=== PATIENT | female | born 1950 | race Caucasian/White ===

== ENCOUNTER 2023-03-19 11:02 | Outpatient (AMB) | payer MEDICARE, OTHER, SELFPAY ==
--- NOTE | 2023-03-19 11:12 | HO.NEPHOV_ITS ---
HPI HPI Comments History of Present Illness Details I had the pleasure of seeing Rama in follow-up of her mild chronic kidney disease and hypertension. Her blood pressures have been better since adjustment of her medications even though it is still not at goal. She does not take any excess sodium in the diet or nonsteroidal anti-inflammatories. She maintains good hydration. She denies chest pain, shortness of breath, proximal nocturnal dyspnea, orthopnea, pedal edema, urinary symptoms, orthostasis or hematuria. Her serum creatinine had been stable around 1.3. Her mother had CKD, followed had CKD and 1 of her cousins had ESRD needing renal transplantation. She is compliant with her medications. She feels well. [facility] Medical History (Updated 03/19/23 @ 13:30 by Yazan Rodriguez MD) Chronic kidney disease, stage 3a Hypertension Surgical History (Updated 03/19/23 @ 11:22 by Araceli Meng MA) History of hysterectomy Family History Father Diabetes CKD (chronic kidney disease) Mother Diabetes CKD (chronic kidney disease) Mother Diabetes CKD (chronic kidney disease) Social History (Updated 03/19/23 @ 11:22 by Araceli Meng MA) Alcohol intake: never Patient Tobacco Use Status: Never used Tobacco Vital Signs 03/19/23 11:14 03/19/23 11:48 Height 5 ft 2 in Weight 135 lb 8 oz BMI 24.8 BP 154/100 H 140/90 H Blood Pressure Location Lt brachial Position Sitting Pulse 94 Pulse Source Pulse Oximeter Pulse Oximetry (%) 99 Oxygen Delivery Method Room Air Physical Exam Vital Signs: Last Vital Signs Pulse 94 03/19/23 11:14 BP 140/90 H 03/19/23 11:48 Pulse Ox 99 03/19/23 11:14 Oxygen Delivery Method Room Air 03/19/23 11:14 BMI result Body Mass Index 24.8 Const General: comfortable and no acute distress Orientation/consciousness: patient oriented x3 HEENT Head: Yes normocephalic Mouth: Normal oral and palatal mucosa present Eyes EOM: EOMs intact bilaterally Neck Neck: Yes supple Resp Auscultation: clear to auscultation bilaterally Cardio Jugular venous distension: no JVD Rate: regular rate GI Palpation (GI): Soft to palpation Auscultation: normal bowel sounds General: Yes no CVA tenderness Back/Spine/Pelvis Back: no CVA tenderness Skin General skin exam: no rashes or lesions noted Neuro General: patient oriented x3 and moves all extremities Extrem General: Yes no pedal edema Assessment & Plan Assessment & Plan (1) Chronic kidney disease, stage 3a: Code(s): N18.31 - Chronic kidney disease, stage 3a (2) Hypertension: Code(s): I10 - Essential (primary) hypertension Qualifiers: Hypertension type: primary hypertension Qualified Code(s): I10 - Essential (primary) hypertension Plan Rama has mild CKD likely from vascular disease. She has no proteinuria. Her serum creatinine is stable at 1.3. 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 She does not have any RBCs in the urine. She can continue her losartan at 100 mg daily. I increased her amlodipine to 5 mg from 2.5 mg daily. I will repeat her blood work including ANCA after next visit along with urine studies. All questions answered. Follow-up given. Orders: Orders Electrolytes Today I10 - Essential (primary) hypertension, N18.31 - Chronic kidney disease, stage 3a Creatinine Today I10 - Essential (primary) hypertension, N18.31 - Chronic kidney disease, stage 3a Blood Urea Nitrogen Today I10 - Essential (primary) hypertension, N18.31 - Chronic kidney disease, stage 3a Medications: New amlodipine 5 mg PO DAILY 90 tabs 4RF 90 days Coding Level of Care Code Est Pt Level 4 (06855) Diagnoses Chronic kidney disease, stage 3a N18.31 Primary hypertension I10 Hypertension type: primary hypertension Results Reviewed Nephrology Results: No Data to Display
[2023-03-19 11:14] VITALS: BP 154/100; PULSE 94; O2SAT 99; BMI 24.8
[2023-03-19 11:48] VITALS: BP 140/90
== END 2023-03-19 11:57 | disposition home or self-care (01) ==
PROVIDERS: PCP Internal Medicine; Visit Provider Internal Medicine Nephrology
DX: N18.31 Chronic kidney disease, stage 3a (principal); I10 Essential (primary) hypertension
CPT/HCPCS: 99214

== ENCOUNTER → 2023-03-19 11:02 | Outpatient (BNVA) | payer MEDICARE, OTHER, SELFPAY | PROVIDERS: PCP Internal Medicine; Visit Provider Internal Medicine Nephrology | DX: I12.9 Hypertensive chronic kidney disease with stage 1 through stage 4 chronic kidney disease, or unspecified chronic kidney disease (principal); N18.31 Chronic kidney disease, stage 3a; Z79.899 Other long term (current) drug therapy | CPT/HCPCS: 99212 ==

== ENCOUNTER 2023-06-25 12:44 | Outpatient (REF) | payer MEDICARE, OTHER, SELFPAY ==
[2023-06-25 17:27] LABS: Anion Gap 10 (12-20); Blood Urea Nitrogen 20 mg/dL (9-16); Carbon Dioxide 27 mmol/L (22-29); Chloride 107 mmol/L (96-108); Estimated Glomerular Filt Rate 44; Potassium 4.2 mmol/L (3.3-5.1); Sodium 140 mmol/L (135-145)
== END 2023-06-25 12:45 | disposition home or self-care (01) ==
LOC: HO.HKASLDS 12:44
PROVIDERS: Visit Provider Internal Medicine Nephrology
DX: I12.9 Hypertensive chronic kidney disease with stage 1 through stage 4 chronic kidney disease, or unspecified chronic kidney disease (principal); N18.31 Chronic kidney disease, stage 3a
CPT/HCPCS: 36415; 80051; 82565; 84520

== ENCOUNTER 2023-06-27 11:03 | Outpatient (AMB) | payer MEDICARE, OTHER, SELFPAY ==
[2023-06-27 11:10] VITALS: BP 140/90; PULSE 71; O2SAT 100; BMI 25.0
--- NOTE | 2023-06-27 11:10 | HO.NEPHOV ---
Vital Signs 06/27/23 11:10 Height 5 ft 2 in Weight 136 lb 8 oz BMI 25.0 BP 140/90 H Blood Pressure Location Lt brachial Position Sitting Pulse 71 Pulse Source Pulse Oximeter Pulse Oximetry (%) 100 Oxygen Delivery Method Room Air Intake Visit Reasons: Hypertension/ 3 MO FU/ Confirmed Clinical Nutritionist Required: No Accompanied by: Self / Same As Patient Allergies No Known Allergies Allergy (Verified 06/27/23 11:13) HPI Comments Details: I had the pleasure of seeing Rama in follow-up of her mild chronic kidney disease and hypertension. Her blood pressures have been better since adjustment of her medications e. She does not take any excess sodium in the diet or nonsteroidal anti-inflammatories. She maintains good hydration. She denies chest pain, shortness of breath, proximal nocturnal dyspnea, orthopnea, pedal edema, urinary symptoms, orthostasis or hematuria. Her serum creatinine had been stable around 1.3. Her mother had CKD, followed had CKD and 1 of her cousins had ESRD needing renal transplantation. She is compliant with her medications. [facility] Medical History (Updated 03/19/23 @ 13:30 by Yazan Rodriguze MD) Chronic kidney disease, stage 3a Hypertension Surgical History History of hysterectomy Family History Father Diabetes CKD (chronic kidney disease) Mother Diabetes CKD (chronic kidney disease) Mother Diabetes CKD (chronic kidney disease) Social History Alcohol intake: never Patient Tobacco Use Status: Never used Tobacco Physical Exam Vital Signs: Last Vital Signs Pulse 71 06/27/23 11:10 BP 150/84 H 06/27/23 11:10 Pulse Ox 100 06/27/23 11:10 Oxygen Delivery Method Room Air 06/27/23 11:10 BMI result Body Mass Index 25.0 Const General: comfortable and no acute distress Orientation/consciousness: patient oriented x3 HEENT Head: Yes normocephalic Mouth: Normal oral and palatal mucosa present Eyes EOM: EOMs intact bilaterally Neck Neck: Yes supple Resp Auscultation: clear to auscultation bilaterally Cardio Jugular venous distension: no JVD Rate: regular rate GI Palpation (GI): Soft to palpation Auscultation: normal bowel sounds General: Yes no CVA tenderness Back/Spine/Pelvis Back: no CVA tenderness Skin General skin exam: no rashes or lesions noted Neuro General: patient oriented x3 and moves all extremities Extrem General: Yes no pedal edema Results Reviewed Nephrology Results: Sodium 140 mmol/L (135-145) 06/25/23 Potassium 4.2 mmol/L (3.3-5.1) 06/25/23 Chloride 107 mmol/L (96-108) 06/25/23 Carbon Dioxide 27 mmol/L (22-29) 06/25/23 BUN 20 mg/dL (9-16) H 06/25/23 Creatinine 1.19 mg/dL (0.5-1.4) 06/25/23 Assessment & Plan Assessment & Plan (1) Chronic kidney disease, stage 3a: Code(s): N18.31 - Chronic kidney disease, stage 3a Category: Medical (2) Hypertension: Code(s): I10 - Essential (primary) hypertension Category: Medical Qualifiers: Hypertension type: primary hypertension Qualified Code(s): I10 - Essential (primary) hypertension Plan Rama has mild CKD likely from vascular disease. She has no proteinuria. Her serum creatinine is stable . 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 She does not have any RBCs in the urine. She can continue her losartan at 100 mg daily and amlodipine to 5 mg daily. I will repeat her blood work including ANCA after next visit along with urine studies. All questions answered. Follow-up given. Orders: Orders Creatinine Today Blood Urea Nitrogen Today Electrolytes Today ANCA Vasculitides Today Coding Level of Care Code Est Pt Level 4 (06447) Diagnoses Chronic kidney disease, stage 3a N18.31 Primary hypertension I10 Hypertension type: primary hypertension
== END 2023-06-27 11:34 | disposition home or self-care (01) ==
PROVIDERS: PCP Internal Medicine; Visit Provider Internal Medicine Nephrology
DX: N18.31 Chronic kidney disease, stage 3a (principal); I10 Essential (primary) hypertension
CPT/HCPCS: 99214

== ENCOUNTER → 2023-06-27 11:03 | Outpatient (BNVA) | payer MEDICARE, OTHER, SELFPAY | PROVIDERS: PCP Internal Medicine; Visit Provider Internal Medicine Nephrology | DX: I12.9 Hypertensive chronic kidney disease with stage 1 through stage 4 chronic kidney disease, or unspecified chronic kidney disease (principal); N18.31 Chronic kidney disease, stage 3a | CPT/HCPCS: 99212 ==

== ENCOUNTER 2023-10-01 11:10 | Outpatient (AMB) | payer MEDICARE, OTHER, SELFPAY ==
--- NOTE | 2023-10-01 11:33 | HO.NEPHOV ---
Vital Signs 10/01/23 11:34 Height 5 ft 2 in Weight 135 lb 4 oz BMI 24.7 BP 150/90 H Blood Pressure Location Lt brachial Position Sitting Pulse 88 Pulse Source Pulse Oximeter Pulse Oximetry (%) 98 Oxygen Delivery Method Room Air Intake Visit Reasons: Aug follow up/ Conf Livestock Brands Inspector Required: No Accompanied by: Self / Same As Patient Allergies No Known Allergies Allergy (Verified 10/01/23 11:35) HPI Comments Details: I had the pleasure of seeing Rama in follow-up of her mild chronic kidney disease and hypertension. Her blood pressures have been better since adjustment of her medications . She does not take any excess sodium in the diet or nonsteroidal anti-inflammatories. She maintains good hydration. She denies chest pain, shortness of breath, proximal nocturnal dyspnea, orthopnea, pedal edema, urinary symptoms, orthostasis or hematuria. Her serum creatinine had been stable around 1.3. Her mother had CKD, followed had CKD and 1 of her cousins had ESRD needing renal transplantation. She is compliant with her medications. She has had couple of episodes of orthostatic symptoms. [facility] Medical History Chronic kidney disease, stage 3a Hypertension Surgical History History of hysterectomy Family History Father Diabetes CKD (chronic kidney disease) Mother Diabetes CKD (chronic kidney disease) Mother Diabetes CKD (chronic kidney disease) Social History Alcohol intake: never Patient Tobacco Use Status: Never used Tobacco Review of Systems Const All systems reviewed & are unremarkable except as noted in HPI and below Physical Exam Vital Signs: Last Vital Signs Pulse 88 10/01/23 11:34 BP 150/90 H 10/01/23 11:34 Pulse Ox 98 10/01/23 11:34 Oxygen Delivery Method Room Air 10/01/23 11:34 BMI result Body Mass Index 24.7 Const General: comfortable and no acute distress Orientation/consciousness: patient oriented x3 HEENT Head: Yes normocephalic Mouth: Normal oral and palatal mucosa present Eyes EOM: EOMs intact bilaterally Neck Neck: Yes supple Resp Auscultation: clear to auscultation bilaterally Cardio Jugular venous distension: no JVD Rate: regular rate Heart sounds: Murmur heart sound present GI Palpation (GI): Soft to palpation Auscultation: normal bowel sounds General: Yes no CVA tenderness Back/Spine/Pelvis Back: no CVA tenderness Skin General skin exam: no rashes or lesions noted Neuro General: patient oriented x3 and moves all extremities Extrem General: Yes no pedal edema Results Reviewed Nephrology Results: Sodium 140 mmol/L (135-145) 06/25/23 Potassium 4.2 mmol/L (3.3-5.1) 06/25/23 Chloride 107 mmol/L (96-108) 06/25/23 Carbon Dioxide 27 mmol/L (22-29) 06/25/23 BUN 20 mg/dL (9-16) H 06/25/23 Creatinine 1.19 mg/dL (0.5-1.4) 06/25/23 Assessment & Plan Assessment & Plan (1) Chronic kidney disease, stage 3a: Code(s): N18.31 - Chronic kidney disease, stage 3a Category: Medical (2) Hypertension: Code(s): I10 - Essential (primary) hypertension Category: Medical Qualifiers: Hypertension type: primary hypertension Qualified Code(s): I10 - Essential (primary) hypertension Plan Rama has mild CKD likely from vascular disease. She has no proteinuria. Her serum creatinine is stable . 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 She does not have any RBCs in the urine. She can continue her losartan at 100 mg daily AM and amlodipine to 5 mg daily at night. I will back him off Amlodipine to 2.5 mg if her orthostatic symptoms do not resolve with change in timing of medications. All questions answered. Follow-up given. Coding Level of Care Code Est Pt Level 4 (23252) Diagnoses Chronic kidney disease, stage 3a N18.31 Primary hypertension I10 Hypertension type: primary hypertension
[2023-10-01 11:34] VITALS: BP 150/90; PULSE 88; O2SAT 98; BMI 24.7
== END 2023-10-01 12:58 | disposition home or self-care (01) ==
PROVIDERS: PCP Internal Medicine; Visit Provider Internal Medicine Nephrology
DX: N18.31 Chronic kidney disease, stage 3a (principal); I10 Essential (primary) hypertension
CPT/HCPCS: 99214

== ENCOUNTER → 2023-10-01 11:10 | Outpatient (BNVA) | payer MEDICARE, OTHER, SELFPAY | PROVIDERS: PCP Internal Medicine; Visit Provider Internal Medicine Nephrology ==

== ENCOUNTER 2023-10-01 11:16 | Outpatient (REF) | payer MEDICARE, OTHER, SELFPAY ==
[2023-10-01 18:39] LABS: Anion Gap 14 (12-20); Blood Urea Nitrogen 15 mg/dL (9-16); Carbon Dioxide 26 mmol/L (22-29); Chloride 107 mmol/L (96-108); Estimated Glomerular Filt Rate 46; Potassium 3.9 mmol/L (3.3-5.1); Sodium 143 mmol/L (135-145)
[2023-10-03 20:48] LABS: Myeloperoxidase Antibody <1.0 AI; Proteinase 3 PR3 Antibodies <1.0 AI
== END 2023-10-01 11:17 | disposition home or self-care (01) ==
LOC: HO.HKASLDS 11:16
PROVIDERS: Visit Provider Internal Medicine Nephrology
DX: I12.9 Hypertensive chronic kidney disease with stage 1 through stage 4 chronic kidney disease, or unspecified chronic kidney disease (principal); N18.31 Chronic kidney disease, stage 3a; Z79.899 Other long term (current) drug therapy
CPT/HCPCS: 36415; 80051; 82565; 84520; 86021; 99212

== ENCOUNTER 2024-04-07 09:48 | Outpatient (AMB) | payer MEDICARE, OTHER, SELFPAY ==
--- NOTE | 2024-04-07 10:10 | HO.NEPHOV ---
Vital Signs 04/07/24 10:11 Height 5 ft 2 in Weight 135 lb 2 oz BMI 24.7 BP 160/90 H Blood Pressure Location Lt brachial Position Sitting Intake Visit Reasons: R/s from 04/02/24/ Conf Extruder Tender Required: No Accompanied by: Self / Same As Patient Allergies No Known Allergies Allergy (Verified 04/07/24 10:11) HPI Comments Details: I had the pleasure of seeing Rama in follow-up of her mild chronic kidney disease and hypertension. Her blood pressures have been better since adjustment of her medications . She has been having recurrent vestibulitis. She does not take any excess sodium in the diet or nonsteroidal anti-inflammatories. She maintains good hydration. She denies chest pain, shortness of breath, proximal nocturnal dyspnea, orthopnea, pedal edema, urinary symptoms, orthostasis or hematuria. Her serum creatinine had been stable around 1.3. Her mother had CKD, followed had CKD and 1 of her cousins had ESRD needing renal transplantation. She is compliant with her medications. [facility] Medical History Chronic kidney disease, stage 3a Hypertension Surgical History History of hysterectomy Family History Father Diabetes CKD (chronic kidney disease) Mother Diabetes CKD (chronic kidney disease) Mother Diabetes CKD (chronic kidney disease) Social History Alcohol intake: never Patient Tobacco Use Status: Never used Tobacco Review of Systems Const All systems reviewed & are unremarkable except as noted in HPI and below Physical Exam Vital Signs: Last Vital Signs BP 160/90 H 04/07/24 10:11 BMI result Body Mass Index 24.7 Const General: comfortable and no acute distress Orientation/consciousness: patient oriented x3 HEENT Head: Yes normocephalic Mouth: Normal oral and palatal mucosa present Eyes EOM: EOMs intact bilaterally Neck Neck: Yes supple Resp Auscultation: clear to auscultation bilaterally Cardio Jugular venous distension: no JVD Rate: regular rate GI Palpation (GI): Soft to palpation Auscultation: normal bowel sounds General: Yes no CVA tenderness Back/Spine/Pelvis Back: no CVA tenderness Skin General skin exam: no rashes or lesions noted Neuro General: patient oriented x3 and moves all extremities Extrem General: Yes no pedal edema Results Reviewed Nephrology Results: Sodium 143 mmol/L (135-145) 10/01/23 Potassium 3.9 mmol/L (3.3-5.1) 10/01/23 Chloride 107 mmol/L (96-108) 10/01/23 Carbon Dioxide 26 mmol/L (22-29) 10/01/23 BUN 15 mg/dL (9-16) 10/01/23 Creatinine 1.15 mg/dL (0.5-1.4) 10/01/23 Assessment & Plan Assessment & Plan (1) Chronic kidney disease, stage 3a: Code(s): N18.31 - Chronic kidney disease, stage 3a Category: Medical (2) Hypertension: Code(s): I10 - Essential (primary) hypertension Category: Medical Qualifiers: Hypertension type: primary hypertension Qualified Code(s): I10 - Essential (primary) hypertension Plan Rama has mild CKD likely from vascular disease. She has no proteinuria. Her serum creatinine is stable . 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 She does not have any RBCs in the urine. She can continue her losartan at 100 mg daily AM and amlodipine to 5 mg daily at night. All questions answered. Follow-up given. Orders: Orders Blood Urea Nitrogen 4 Months I10 - Essential (primary) hypertension, N18.31 - Chronic kidney disease, stage 3a Creatinine 4 Months I10 - Essential (primary) hypertension, N18.31 - Chronic kidney disease, stage 3a Electrolytes 4 Months I10 - Essential (primary) hypertension, N18.31 - Chronic kidney disease, stage 3a Protein Creatinine Ratio, Ur 4 Months I10 - Essential (primary) hypertension, N18.31 - Chronic kidney disease, stage 3a Coding Level of Care Code Est Pt Level 4 (46184) Diagnoses Chronic kidney disease, stage 3a N18.31 Primary hypertension I10 Hypertension type: primary hypertension
[2024-04-07 10:11] VITALS: BP 160/90; BMI 24.7
--- OUTSIDE RECORDS SUMMARY | 2024-04-07 10:56 | XMS_ITS | Clinical Summary ---
Author Organization [facility] Address [address] [place] [address] Phone Care Team Providers Care Merchant Patroller Name Role Phone Bayron Rascon MD Primary Care Provider [phone] Allergies No known active allergies Medications losartan (COZAAR) 100 MG tablet Take 1 tablet (100 mg total) by mouth 1 (one) time each day 90 tablet 3 03/05/2022 Active rosuvastatin (CRESTOR) 10 MG tablet Take 10 mg by mouth 1 (one) time each day 08/13/2022 Active amLODIPine (NORVASC) 2.5 MG tablet Take 2.5 mg by mouth 1 (one) time each day Active Active Problems Problem Noted Date Diagnosed Date Hypertension 04/04/2021 Benign essential hypertension 08/31/2020 Stage 3a chronic kidney disease 08/31/2020 Vitamin D deficiency 08/31/2020 Family History Medical History Relation Comments Diabetes Father Hypertension Father Kidney disease Father Diabetes Mother Heart disease Mother Hypertension Mother Kidney disease Mother Relation Status Comments Father Alive Mother Social History Tobacco Use Types Packs/Day Years Used Date Smoking Tobacco: Never Smokeless Tobacco: Never Tobacco Cessation:Counseling Given: Not Answered Alcohol Use Standard Drinks/Week Comments No 0 (1 standard drink = 0.6 oz pur e alcohol) Comments Unknown Sex and Gender Information Value Date Recorded Sex Assigned at Not on file Legal Sex Female 5:13 PM EST Gender Identity Not on file Sexual Orientation Not on file Last Filed Vital Signs Vital Sign Reading Time Taken Comments Blood Pressure 140/90 10/08/2022 2:30 PM EDT Pulse 69 10/08/2022 2:30 PM EDT Temperature - - Respiratory Rate - - Oxygen Saturation 98% 03/23/2021 3:16 PM EST Inhaled Oxygen Concentration - - Weight 60.6 kg (133 lb 9.6 oz) 10/08/2022 2:30 P M EDT Height 160 cm (5' 3 ) 06/09/2019 12:00 PM EDT Body Mass Index 23.67 06/09/2019 12:00 PM EDT Plan of Treatment Health Maintenance Due Date Last Done Comments Breast Cancer Screening 1950 Pneumococcal Vaccine: 65+ Ye ars (1 of 2 - PCV) 11/17/1956 Colorectal Cancer Screening: Annual FOBT 1998 Colorectal Cancer Screening: Colonoscopy 1998 Colorectal Cancer Screening: Sigmoidoscopy 1998 Influenza Vaccine (#1) 2023 Hepatitis B Vaccine Aged Out No longe r eligible based on patient's age to complete this topic Insurance MEDICARE [facility] MEDICARE [facility] Care Teams Merchant Patroller Relationship Specialty Start Date End Date Bayron Rascon MD [address] [place] [address] PCP - General 03/07/20
--- OUTSIDE RECORDS SUMMARY | 2024-04-07 10:56 | XMS_ITS | Encounter Summary ---
Author Organization [facility] Address [address] [place] [address] Phone Care Team Providers Care Immigration Associate Name Role Phone Bayron Rascon MD Primary Care Provider Encounter Details Date Type Department Care Team (Late st Contact Info) Description 04/04/2021 Documentation Only [facility] [address] [place] [address] Yazan Rodriguez MD Social History Tobacco Use Types Packs/Day Years Used Date Smoking Tobacco: Never Smokeless Tobacco: Never Alcohol Use Standard Drinks/Week Comments No 0 (1 standard drink = 0.6 oz pur e alcohol) Comments Unknown Sex and Gender Information Value Date Recorded Sex Assigned at Not on file Legal Sex Female 5:13 PM EST Gender Identity Not on file Sexual Orientation Not on file COVID-19 Exposure Response Date Recorded In the last month, have you been in contact with someone who was confirmed or suspected to have Coronavirus / COVID-19? No / Unsure 04/03/2021 10:55 AM EST documented as of this encounter Plan of Treatment Not on file documented as of this encounter Visit Diagnoses Not on filedocumented in this encounter Care Teams Immigration Associate Relationship Specialty Start Date End Date Bayron Rascon MD [address] [place] [address] PCP - General 03/07/20 documented as of this encounter
--- OUTSIDE RECORDS SUMMARY | 2024-04-07 10:57 | XMS_ITS | Clinical Summary ---
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 30 tablet 03/30/19 25 Encounters Date Type Department Care Team Description 03/20/2024 4:05 PM EST - 03/20/2024 8:45 PM EST Emergency [facility] Emergency [address] [place] [address] Dizziness (Primary Dx) Discharge Disposition: Home or Self Care from Last 3 Months Social History Tobacco Use Types Packs/Day Years Used Date Smoking Tobacco: Never Assessed Comments Unknown Sex and Gender Information Value Date Recorded Sex Assigned at Female 03/20/2024 4:56 PM EST Legal Sex Female 3:24 AM EST Gender Identity Female 03/20/2024 4:56 PM EST Sexual Orientation Straight 03/20/2024 4: 56 PM EST Last Filed Vital Signs Vital Sign Reading Time Taken Comments Blood Pressure 167/85 03/20/2024 6:21 PM EST Pulse 63 03/20/2024 6:21 PM EST Temperature 37.1 ??C (98.7 ??F) 03/20/2024 6:21 PM ES T Respiratory Rate 17 03/20/2024 6:21 PM EST Oxygen Saturation 96% 03/20/2024 6:21 PM EST Inhaled Oxygen Concentration - - Weight 60.3 kg (133 lb) 03/20/2024 4:19 PM EST Height 160 cm (5' 3 ) 03/20/2024 4:19 PM EST Body Mass Index 23.56 03/20/2024 4:19 PM EST Plan of Treatment Health Maintenance Due Date Last Done Comments Breast Cancer Screening 1950 DTaP,Tdap,and Td Vaccines (1 - Tdap) 1957 Pneumococcal Vaccine: 50+ Years (1 of 1 - PCV) 11/17/1999 Zoster Vaccines (1 of 2) 11/17/1999 Cholesterol Screening (Lipid Panel) 01/28/2022 Colorectal Cancer Screening: Colonoscopy 01/28/2022 Depression Screening 01/28/2022 Falls Risk Assessment 01/28/2022 Hepatitis C Screening 01/28/2022 Medicare Annual Wellness Visit 01/28/2022 Osteoporosis Screening (Bone Density Screening) 01/28/2022 Social Influencers of Health Screening 01/28/2022 COVID-19 Vaccine (3 - 2023-2 5 season) 2023 07/29/2020, 06/30/2020 Influenza Vaccine (#1) 2023 04/01/2019 RSV Immunization Patients 60 + Years Old (1 - 1-dose 75+ series) 2024 Hypertension/CHF/CAD Annual BMP Blood Test 03/20/2025 03/20/2024 HIB Vaccines Aged Out No longer eligi ble based on patient's age to complete this topic HPV Vaccines Aged Out No longer eligi ble based on patient's age to complete this topic Hepatitis A Vaccines Aged Out No long er eligible based on patient's age to complete this topic Hepatitis B Vaccines Aged Out No long er eligible based on patient's age to complete this topic IPV Vaccines Aged Out No longer eligi ble based on patient's age to complete this topic MMR Vaccines Aged Out No longer eligi ble based on patient's age to complete this topic Meningococcal ACWY Vaccine Aged Out N o longer eligible based on patient's age to complete this topic Meningococcal B Vacine Aged Out No lo nger eligible based on patient's age to complete this topic RSV Immunization Patients Under 20 months Aged Out No longer eligible b ased on patient's age to complete this topic Varicella Vaccines Aged Out No longer eligible based on patient's age to complete this topic Procedures Procedure Name Priority Date/Time Associated Diagnosis Comments TROPONIN I HIGH SENSITIVITY STAT 03/20/2024 6:04 PM EST POCT GLUCOSE BLOOD Routine 03/20/2024 4: 52 PM EST ECG 12-LEAD STAT 03/20/2024 4:44 PM EST TROPONIN I HIGH SENSITIVITY STAT 03/20/2024 4:25 PM EST CBC WITH AUTO DIFFERENTIAL STAT 03/20/2024 4:25 PM EST MAGNESIUM STAT 03/20/2024 4:25 PM EST BASIC METABOLIC PANEL STAT 03/20/2024 4:25 PM EST CBC AND DIFFERENTIAL STAT 03/20/2024 4:25 PM EST ECG ANNOTATED 03/20/2024 from Last 3 Months Results * Troponin I high sensitivity (NOW and then in 1 hour) (03/20/2024 6:04 PM EST) Only the most recent of2 resultswithin the time period is included. High Sensitivity Troponin I 7 <=54 ng/L LAB CHEMISTRY METHOD 03/20/2024 6:56 PM EST [facility] Blood Venous blood specimen / Unknown Venipuncture / Unknown 03/20/2024 6:04 PM EST 03/20/2024 6:15 PM EST Narrative [facility] - 03/20/2024 6:56 PM EST High levels of biotin in samples may falsely decrease hsTroponin values. ??Use caution when interpreting hsTroponin results in patients taking biotin who exhibit renal impairment (eGFR <60) or in patients taking more than 20 mg/day of biotin. us Eliezer GREEN LAB BLOOD ORDERABLES Final R esult [facility] [address] [place] [address], [place] [phone] * POCT Glucose, blood (03/20/2024 4:52 PM EST) [facility] Glucose POCT 98 70 - 100 mg/dL 03/20/2024 4:53 PM EST [facility] Blood Capillary blood specimen / Unknown 03/20/2024 4:52 PM EST 03/20/2024 4:54 PM EST us Generic Provider Poct LAB POINT OF CARE TEST DOCKED DEVICE UNSOLICITED RESULTS Final Result Performing Organization Address [facility] Co de Phone Number [facility] [address] [place] [address], [place] [phone] * ECG 12 lead (03/20/2024 4:44 PM EST) [facility] Ventricular Rate ECG 64 BPM GEMUSE Atrial Rate 64 BPM GEMUSE P-R Interval 164 ms GEMUSE QRS Duration 84 ms GEMUSE Q-T Interval 358 ms GEMUSE QTc 369 ms GEMUSE P Wave [place] 54 degrees GEMUSE R [place] -6 degrees GEMUSE T [place] 78 degrees GEMUSE ECG Interpretation Normal sinus rhythm Nonspecific T wave abnormality Abnormal ECG When compared with ECG of 22-NOV-2015 16:56, No significant change was found Confirmed by JYOTI MENDIETA ([id number]) on 03/21/2024 4:44:13 PM GEMUSE 03/20/2024 4:44 PM EST 03/21/2024 4:44 PM EST us Bobby Gonsalez MD ECG ORDERABLES Final Result Performing Organization Address City/[facility] Co de Phone Number GEMUSE * CBC auto differential (03/20/2024 4:25 PM EST) [facility] WBC 5.1 4.8 - 10.8 [facility] LAB HEMETOLOGY METHOD 03/20/2024 4:39 PM [facility] RBC 4.40 3.80 - 4.80 M/mcL LAB HEMETOLOGY METHOD 03/20/2024 4:39 PM [facility] Hemoglobin 12.6 11.5 - 16.0 g/dL LAB HEMETOLOGY METHOD 03/20/2024 4:39 PM [facility] Hematocrit 38.9 35.0 - 47.0 % LAB HEMETOLOGY METHOD 03/20/2024 4:39 PM [facility] MCV 87.8 79.0 - 98.0 FL LAB HEMETOLOGY METHOD 03/20/2024 4:39 PM [facility] MCH 28.4 27.0 - 32.0 pcg LAB HEMETOLOGY METHOD 03/20/2024 4:39 PM [facility] MCHC 32.4 32.0 - 37.0 g/dL LAB HEMETOLOGY METHOD 03/20/2024 4:39 PM [facility] RDW 13.4 11.0 - 15.0 % LAB HEMETOLOGY METHOD 03/20/2024 4:39 PM [facility] Platelets 274 130 - 400 K/mcL LAB HEMETOLOGY METHOD 03/20/2024 4:39 PM [facility] MPV 9.7 7.0 - 11.0 FL LAB HEMETOLOGY METHOD 03/20/2024 4:39 PM [facility] NRBC 0.0 <1.0 % LAB HEMETOLOGY METHOD 03/20/2024 4:39 PM [facility] NRBC Absolute 0.00 <0.10 K/mcL LAB HEMETOLOGY METHOD 03/20/2024 4:39 PM [facility] Neutrophils Relative 62.4 % LAB HEMETOLOGY METHOD 03/20/2024 4:39 PM [facility] Lymphocytes Relative 29.9 % LAB HEMETOLOGY METHOD 03/20/2024 4:39 PM [facility] Monocytes Relative 6.5 % LAB HEMETOLOGY METHOD 03/20/2024 4:39 PM [facility] Eosinophils Relative 0.4 % LAB HEMETOLOGY METHOD 03/20/2024 4:39 PM [facility] Basophils Relative 0.6 % LAB HEMETOLOGY METHOD 03/20/2024 4:39 PM [facility] Immature Granulocytes Relative 0.2 % LAB HEMETOLOGY METHOD 03/20/2024 4:39 PM [facility] Neutrophils Absolute 3.19 1.50 - 7.00 K/mcL LAB HEMETOLOGY METHOD 03/20/2024 4:39 PM [facility] Lymphocytes Absolute 1.53 1.00 - 5.00 K/mcL LAB HEMETOLOGY METHOD 03/20/2024 4:39 PM [facility] Monocytes Absolute 0.33 0.20 - 1.00 K/mcL LAB HEMETOLOGY METHOD 03/20/2024 4:39 PM [facility] Eosinophils Absolute 0.02 0.00 - 0.50 K/mcL LAB HEMETOLOGY METHOD 03/20/2024 4:39 PM [facility] Basophils Absolute 0.03 0.00 - 0.20 K/mcL LAB HEMETOLOGY METHOD 03/20/2024 4:39 PM [facility] Immature Granulocytes Absolute 0.01 0.00 - 0.03 K/mcL LAB HEMETOLOGY METHOD 03/20/2024 4:39 PM [facility] Blood Venous blood specimen / Unknown Venipuncture / Unknown 03/20/2024 4:25 PM EST 03/20/2024 4:29 PM EST us Bobbyaleja Gonsalez MD LAB BLOOD ORDERABLES Final Resu lt [facility] [address] [place] [address], [place] [phone] * Magnesium (03/20/2024 4:25 PM EST) [facility] Magnesium 1.9 1.9 - 2.6 mg/dL LAB CHEMISTRY METHOD 03/20/2024 4:59 PM EST [facility] Blood Venous blood specimen / Unknown Venipuncture / Unknown 03/20/2024 4:25 PM EST 03/20/2024 4:29 PM EST Bobby Gonsalez MD LAB BLOOD ORDERABLES Final Resu lt [facility] [address] [place] [address], [place] [phone] * (ABNORMAL) Basic metabolic panel (03/20/2024 4:25 PM EST) [facility] Sodium 138 133 - 145 mmol/L LAB CHEMISTRY METHOD 03/20/2024 4:59 PM [facility] Potassium 4.0 3.5 - 5.5 mmol/L LAB CHEMISTRY METHOD 03/20/2024 4:59 PM [facility] Chloride 107 96 - 110 mmol/L LAB CHEMISTRY METHOD 03/20/2024 4:59 PM [facility] CO2 27 21 - 32 mmol/L LAB CHEMISTRY METHOD 03/20/2024 4:59 PM [facility] Anion Gap 4 3 - 11 LAB CHEMISTRY METHOD 03/20/2024 4:59 PM [facility] Glucose 98 70 - 100 mg/dL LAB CHEMISTRY METHOD 03/20/2024 4:59 PM [facility] BUN 19 5 - 25 mg/dL LAB CHEMISTRY METHOD 03/20/2024 4:59 PM [facility] Creatinine 1.06 0.50 - 1.10 mg/dL LAB CHEMISTRY METHOD 03/20/2024 4:59 PM EST [facility] eGFR 55(L) >=60 mL/min/1. 73m2 LAB CHEMISTRY METHOD 03/20/2024 4:59 PM EST [facility] Comment:Calculation based on the??Chronic Kidney Disease Epidemiology Collaboration (CKD-EPI) equation refit??without adjustment for race. BUN/Creatinine Ratio 17.9 LAB CHEMISTRY METHOD 03/20/2024 4:59 PM EST [facility] Calcium 8.9 8.5 - 10.5 mg/dL LAB CHEMISTRY METHOD 03/20/2024 4:59 PM [facility] Blood Venous blood specimen / Unknown Venipuncture / Unknown 03/20/2024 4:25 PM EST 03/20/2024 4:29 PM EST Bobby Gonsalez MD LAB BLOOD ORDERABLES Final Resu lt [facility] [address] [place] [address], * ECG-Annotated (03/20/2024) Provider Onbase ECG ORDERABLES Final Result from Last 3 Months Insurance MEDICARE [facility] on file Care Teams Plumbing Drafter Relationship Specialty Start Date End Date Bayron Rascon MD [address] [place] [address] PCP - General Internal Medicine 05/23/11
--- OUTSIDE RECORDS SUMMARY | 2024-04-07 10:57 | XMS_ITS | Encounter Summary ---
Author Organization [employer] [facility] Address [address] [place] [address] Care Team Providers Care Hat Blocking Operator Name Role Phone Bayron Rascon MD Primary Care Provider Reason for Visit * Reason Comments Dizziness Encounter Details Date Type Department Care Team ([facility] st Contact Info) Description 03/20/2024 4:05 PM EST - 03/20/2024 8:45 PM EST Emergency [facility] Emergency [address] [place] [address] Dizziness (Primary Dx) Discharge Disposition: Home or Self Care Social History Tobacco Use Types Packs/Day Years Used Date Smoking Tobacco: Never Assessed Comments Unknown Sex and Gender Information Value Date Recorded Sex Assigned at Female 03/20/2024 4:56 PM EST Legal Sex Female 3:24 AM EST Gender Identity Female 03/20/2024 4:56 PM EST Sexual Orientation Straight 03/20/2024 4: 56 PM EST documented as of this encounter Last Filed Vital Signs Vital Sign Reading [...] Mass Index 23.56 03/20/2024 4:19 PM EST documented in this encounter Discharge Instructions * Discharge Instructions* NORMA Langston - 03/20/2024 8:40 PM EST Your EKG and blood work shows no worrisome abnormality. Please take meclizine as prescribed for dizziness. Follow-up with your primary care doctor. * Attachments The following attachments cannot be sent through Care Everywhere. * Vertigo (German) documented in this encounter Medications at Time of Discharge meclizine (ANTIVERT) 25 mg tablet Take 1 tablet (25 mg total) by mouth 3 (three) times a day if needed for dizziness for up to 10 days. 30 tablet 03/20/2024 5 documented as of this encounter Ordered Prescriptions Prescription Sig Dispense Quantity Refills Last Filled Start Date End Date meclizine (ANTIVERT) 25 mg tablet Take 1 tablet (25 mg total) by mouth 3 (three) times a day if needed for dizziness for up to 10 days. 30 tablet 03/20/2024 5 documented in this encounter Discharge Disposition Disposition Code Departure Means Destination Comment s Home or Self Care documented in this encounter Progress Notes * Vashti Prater RN - 03/20/2024 4:09 PM EST Patient comes in via EMS form home, c/o dizziness/vertigo. Patient originally stated abdominal painradiating to back for EMS but when they arrived she stated it resolved. Now she is c/o dizziness * NORMA Langston - 03/20/2024 4:04 PM EST Emergency Medicine Note Patient Name: Rama Oates Initial Evaluation: 03/20/2024 : 1950 Patient's PCP: Bayron Rascon MD Emergency Physician: Mitchell Currie MD History of Present Illness Chief Complaint: Chief Complaint Patient presents with ??? Dizziness HPI: 73-year-old female with history of hypertension and vertigo complaining of dizziness. Symptomsstarted at approximately 8:00 this morning. She states that if she is at rest she has no vertigo, however with any movement the dizziness begins. She was feeling very nauseous earlier and began to experience upper abdominal pain so she called 911. Patient reports that she received medicine prehospital for the nausea. I believe it was Zofran. She states the nausea has resolved but with any movement she becomes dizzy again. Denies any recent trauma. States that she has had episodes similar to this in the past. She recently had a brain MRI. Denies chest pain shortness of breath. ROS: I have performed a ROS with the pertinent positives and negatives documented in the history ofpresent illness. Previous History No past medical history on file. No past surgical history on file. No family history on file. has no allergies on file. No current facility-administered medications on file prior to encounter. No current outpatient medications on file prior to encounter. Physical Exam ED Triage Vitals [03/20/24 1619] Temp Heart Rate Resp BP 37.1 ??C (98.7 ??F) 80 18 (!) 157/89 SpO2 Temp Source Heart Rate Source Patient Position 98 % Oral -- -- BP Location FiO2 (%) -- -- General: Well-appearing, well nourished, in no acute distress HEENT: PERRL, EOMI, external ears and nose appear unremarkable, airway is patent Neck: Supple, full range of motion Chest: Clear to auscultation; no evidence of respiratory distress Circulatory: RRR, extremities well perfused Abdomen: Non-distended, Non-Tender Extremities: Normal ROM, No edema Skin: Warm and dry Neuro: Alert and oriented, no focal deficits vertigo is reproducible with passive head movement Results Labs Reviewed BASIC METABOLIC PANEL - Abnormal Result Value Sodium 138 Potassium 4.0 Chloride 107 CO2 27 Anion Gap 4 Glucose 98 BUN 19 Creatinine 1.06 eGFR 55 (*) BUN/Creatinine Ratio 17.9 Calcium 8.9 MAGNESIUM - Normal Magnesium 1.9 TROPONIN I HIGH SENSITIVITY - Normal High Sensitivity Troponin I 6 Narrative: High levels of biotin in samples may falsely decrease hsTroponin values. Use caution when interpreting hsTroponin results in patients taking biotin who exhibit renal impairment (eGFR <60) or in patients taking more than 20 mg/day of biotin. POCT GLUCOSE, BLOOD - Normal Glucose POCT 98 CBC AND DIFFERENTIAL Narrative: The following orders were created for panel order CBC and differential. Procedure Abnormality Status --------- ------ CBC auto differential[[id number]] Final result Please view results for these tests on the individual orders. CBC WITH AUTO DIFFERENTIAL WBC 5.1 RBC 4.40 Hemoglobin 12.6 Hematocrit 38.9 MCV 87.8 MCH 28.4 MCHC 32.4 RDW 13.4 Platelets 274 MPV 9.7 NRBC 0.0 NRBC Absolute 0.00 Neutrophils Relative 62.4 Lymphocytes Relative 29.9 Monocytes Relative 6.5 Eosinophils Relative 0.4 Basophils Relative 0.6 Immature Granulocytes Relative 0.2 Neutrophils Absolute 3.19 Lymphocytes Absolute 1.53 Monocytes Absolute 0.33 Eosinophils Absolute 0.02 Basophils Absolute 0.03 Immature Granulocytes Absolute 0.01 TROPONIN I HIGH SENSITIVITY POCT GLUCOSE, BLOOD Abnormal Labs Reviewed BASIC METABOLIC PANEL - Abnormal; Notable for the following components: Result Value eGFR 55 (*) All other components within normal limits No orders to display I have discussed the incidental/abnormal imaging and/or lab abnormalities with the patient and haveinstructed them the need for further evaluation and workup with their primary care doctor. I have provided the patient with a paper copy of the abnormality. The laboratory results, imaging results and other diagnostic exam results were reviewed in the EMR. EKG Interpretation Normal sinus rhythm 64 bpm Critical Care Time None Medical Decision Making Medications meclizine (ANTIVERT) tablet 25 mg (25 mg oral Given 03/20/241711) Patient was evaluated. CBC Chem-7 troponin EKG. Patient received Zofran prehospital with good effect. Meclizine 25 mg p.o. labwork including troponin shows no worrisome abnormality. Patient feels better after meclizine. She was able to ambulate independently felt a little lightheaded but much better than before. Clinical Impressions as of 03/20/242038 Dizziness Procedures Procedures Diagnosis No diagnosis found. Vertigo Disposition Data Unavailable Discharge ED Prescriptions None Physician Attestation No att. providers found I was physically present for the Evaluation and Management service provided. I agree with the Nurse practitioner's/Physician university administrative assistant's note and plan by dated 03/20/24 which Marnie reviewed and edited where appropriate. I have confirmed the physical exam findings and made appropriate changes. I was physically present for the de luna portions of the history, physical and service provided. This is a 73-year-old female who reports she is having vertigo since around 8:00 this morning. She feels like the room is moving. There is no gross visual change. No pain or ringing in her ears. The patientstates that she has a history of vertigo but about 2 months ago she had very severe symptoms while visiting in [place]. She said she remained in bed for 2 or 3 days and felt like she was tumbling. She had several falls because she could not steady herself. She recently had an MRI which did not show anything that she was notified of. On exam she is awake alert and has no obvious nystagmus. Extr aocular movements are grossly intact. TMs are normal and the canals are clear. Carotids are 2+. Chest is clear to auscultation. Cardiac is regular rhythm. Abdomen is soft nontender Differential diagnosis includes labyrinthitis, M??ni??re's disease, vertebrobasilar insufficiency, MS Mitchell Currie MD.att NORMA Langston 03/20/24 1635 NORMA Langston 03/20/24 1658 Mitchell Currie MD 03/20/24 1834 NORMA Langston 03/20/242036 NORMA Langston 03/20/242037 NORMA Langston 03/20/242037 NORMA Langston 03/20/242038 Cosigned by Mitchell Currie MD at 03/20/2024 10:25 PM EST documented in this encounter Plan of Treatment Not on file documented as of this encounter Procedures Procedure Name Priority Date/Time Associated Diagnosis Comments TROPONIN I HIGH SENSITIVITY STAT 03/20/2024 6:04 PM EST POCT GLUCOSE BLOOD Routine 03/20/2024 4: 52 PM EST ECG 12-LEAD STAT 03/20/2024 4:44 PM EST TROPONIN I HIGH SENSITIVITY STAT 03/20/2024 4:25 PM EST CBC WITH AUTO DIFFERENTIAL STAT 03/20/2024 4:25 PM EST CBC AND DIFFERENTIAL STAT 03/20/2024 4:25 PM EST MAGNESIUM STAT 03/20/2024 4:25 PM EST BASIC METABOLIC PANEL STAT 03/20/2024 4:25 PM EST ECG ANNOTATED 03/20/2024 documented in this encounter Results * Troponin I high sensitivity (NOW and then in 1 hour) (03/20/2024 6:04 PM EST) [facility] High Sensitivity Troponin I 7 <=54 ng/L LAB CHEMISTRY METHOD 03/20/2024 6:56 PM EST [facility] Blood Venous blood specimen / Unknown Venipuncture / Unknown 03/20/2024 6:04 PM EST 03/20/2024 6:15 PM EST Narrative [facility] - 03/20/2024 6:56 PM EST High levels of biotin in samples may falsely decrease hsTroponin values. ??Use caution when interpreting hsTroponin results in patients taking biotin who exhibit renal impairment (eGFR <60) or in patients taking more than 20 mg/day of biotin. us Eliezer GREEN LAB BLOOD ORDERABLES Final R esult [facility] [address] [place] [address], * POCT Glucose, blood (03/20/2024 4:52 PM EST) [facility] Glucose POCT 98 70 - 100 mg/dL 03/20/2024 4:53 PM EST [facility] Blood Capillary blood specimen / Unknown 03/20/2024 4:52 PM EST 03/20/2024 4:54 PM EST Generic Provider Poct LAB POINT OF CARE TEST DOCKED DEVICE UNSOLICITED RESULTS Final Result Performing Organization Address City/[facility]/ZIP Co de Phone Number [facility] [address] [place] [address], * ECG 12 lead (03/20/2024 4:44 PM EST) Ventricular Rate ECG 64 BPM GEMUSE Atrial Rate 64 BPM GEMUSE P-R Interval 164 ms GEMUSE QRS Duration 84 ms GEMUSE Q-T Interval 358 ms GEMUSE QTc 369 ms GEMUSE P Wave [place] 54 degrees GEMUSE R [place] -6 degrees GEMUSE T [place] 78 degrees GEMUSE ECG Interpretation Normal sinus rhythm Nonspecific T wave abnormality Abnormal ECG When compared with ECG of 22-NOV-2015 16:56, No significant change was found Confirmed by JYOTI MENDIETA ([id number]) on 03/21/2024 4:44:13 PM GEMUSE 03/20/2024 4:44 PM EST 03/21/2024 4:44 PM EST Bobby Gonsalez MD ECG ORDERABLES Final Result Performing Organization Address City/[facility]/ZIP Co de Phone Number GEMUSE * Troponin I high sensitivity (NOW and then in 1 hour) (03/20/2024 4:25 PM EST) Pathologist [facility] High Sensitivity Troponin I 6 <=54 ng/L LAB CHEMISTRY METHOD 03/20/2024 5:01 PM EST [facility] Blood Venous blood specimen / Unknown Venipuncture / Unknown 03/20/2024 4:25 PM EST 03/20/2024 4:29 PM EST Narrative [facility] - 03/20/2024 5:01 PM EST High levels of biotin in samples may falsely decrease hsTroponin values. ??Use caution when interpreting hsTroponin results in patients taking biotin who exhibit renal impairment (eGFR <60) or in patients taking more than 20 mg/day of biotin. us Eliezer GREEN LAB BLOOD ORDERABLES Final R esult [facility] [address] [place] [address], * CBC auto differential (03/20/2024 4:25 PM EST) Pathologist [facility] WBC 5.1 4.8 - 10.8 K/mcL LAB HEMETOLOGY METHOD 03/20/2024 4:39 PM [facility] RBC 4.40 3.80 - 4.80 M/mcL LAB HEMETOLOGY METHOD 03/20/2024 4:39 PM [facility] Hemoglobin 12.6 11.5 - 16.0 g/dL LAB HEMETOLOGY METHOD 03/20/2024 4:39 PM [facility] Hematocrit 38.9 35.0 - 47.0 % LAB HEMETOLOGY METHOD 03/20/2024 4:39 PM [facility] MCV 87.8 79.0 - 98.0 FL LAB HEMETOLOGY METHOD 03/20/2024 4:39 PM [facility] MCH 28.4 27.0 - 32.0 pcg LAB HEMETOLOGY METHOD 03/20/2024 4:39 PM [facility] MCHC 32.4 32.0 - 37.0 g/dL LAB HEMETOLOGY METHOD 03/20/2024 4:39 PM [facility] RDW 13.4 11.0 - 15.0 % LAB HEMETOLOGY METHOD 03/20/2024 4:39 PM [facility] Platelets 274 130 - 400 K/mcL LAB HEMETOLOGY METHOD 03/20/2024 4:39 PM [facility] MPV 9.7 7.0 - 11.0 FL LAB HEMETOLOGY METHOD 03/20/2024 4:39 PM [facility] NRBC 0.0 <1.0 % LAB HEMETOLOGY METHOD 03/20/2024 4:39 PM [facility] NRBC Absolute 0.00 <0.10 K/mcL LAB HEMETOLOGY METHOD 03/20/2024 4:39 PM [facility] Neutrophils Relative 62.4 % LAB HEMETOLOGY METHOD 03/20/2024 4:39 PM [facility] Lymphocytes Relative 29.9 % LAB HEMETOLOGY METHOD 03/20/2024 4:39 PM [facility] Monocytes Relative 6.5 % LAB HEMETOLOGY METHOD 03/20/2024 4:39 PM [facility] Eosinophils Relative 0.4 % LAB HEMETOLOGY METHOD 03/20/2024 4:39 PM [facility] Basophils Relative 0.6 % LAB HEMETOLOGY METHOD 03/20/2024 4:39 PM [facility] Immature Granulocytes Relative 0.2 % LAB HEMETOLOGY METHOD 03/20/2024 4:39 PM [facility] Neutrophils Absolute 3.19 1.50 - 7.00 K/mcL LAB HEMETOLOGY METHOD 03/20/2024 4:39 PM [facility] Lymphocytes Absolute 1.53 1.00 - 5.00 K/mcL LAB HEMETOLOGY METHOD 03/20/2024 4:39 PM [facility] Monocytes Absolute 0.33 0.20 - 1.00 K/mcL LAB HEMETOLOGY METHOD 03/20/2024 4:39 PM [facility] Eosinophils Absolute 0.02 0.00 - 0.50 K/mcL LAB HEMETOLOGY METHOD 03/20/2024 4:39 PM EST [facility] Basophils Absolute 0.03 0.00 - 0.20 K/[facility] LAB HEMETOLOGY METHOD 03/20/2024 4:39 PM EST [facility] Immature Granulocytes Absolute 0.01 0.00 - 0.03 K/[facility] LAB HEMETOLOGY METHOD 03/20/2024 4:39 PM EST [facility] Blood Venous blood specimen / Unknown Venipuncture / Unknown 03/20/2024 4:25 PM EST 03/20/2024 4:29 PM EST us Bobby Gonsalez MD LAB BLOOD ORDERABLES Final Resu lt Performing Organization Address City/[facility]/ZIP Co de Phone Number [facility] [address] [place] [address], [place] [phone] * Magnesium (03/20/2024 4:25 PM EST) Pathologist [facility] Magnesium 1.9 1.9 - 2.6 mg/dL LAB CHEMISTRY METHOD 03/20/2024 4:59 PM EST [facility] Blood Venous blood specimen / Unknown Venipuncture / Unknown 03/20/2024 4:25 PM EST 03/20/2024 4:29 PM EST us Bobby Gonsalez MD LAB BLOOD ORDERABLES Final Resu lt Performing Organization Address City/[facility]/ZIP Co de Phone Number [facility] [address] [place] [address], [place] [phone] * (ABNORMAL) Basic metabolic panel (03/20/2024 4:25 PM EST) Sodium 138 133 - 145 mmol/L LAB CHEMISTRY METHOD 03/20/2024 4:59 PM EST [facility] Potassium 4.0 3.5 - 5.5 mmol/L LAB CHEMISTRY METHOD 03/20/2024 4:59 PM EST [facility] Chloride 107 96 - 110 mmol/L LAB CHEMISTRY METHOD 03/20/2024 4:59 PM [facility] CO2 27 21 - 32 mmol/L LAB CHEMISTRY METHOD 03/20/2024 4:59 PM [facility] Anion Gap 4 3 - 11 LAB CHEMISTRY METHOD 03/20/2024 4:59 PM [facility] Glucose 98 70 - 100 mg/dL LAB CHEMISTRY METHOD 03/20/2024 4:59 PM [facility] BUN 19 5 - 25 mg/dL LAB CHEMISTRY METHOD 03/20/2024 4:59 PM [facility] Creatinine 1.06 0.50 - 1.10 mg/dL LAB CHEMISTRY METHOD 03/20/2024 4:59 PM [facility] eGFR 55(L) >=60 mL/min/1. 73m2 LAB CHEMISTRY METHOD 03/20/2024 4:59 PM [facility] Comment:Calculation based on the??Chronic Kidney Disease Epidemiology Collaboration (CKD-EPI) equation refit??without adjustment for race. BUN/Creatinine Ratio 17.9 LAB CHEMISTRY METHOD 03/20/2024 4:59 PM [facility] Calcium 8.9 8.5 - 10.5 mg/dL LAB CHEMISTRY METHOD 03/20/2024 4:59 PM [facility] Blood Venous blood specimen / Unknown Venipuncture / Unknown 03/20/2024 4:25 PM EST 03/20/2024 4:29 PM EST us Bobby Gonsalez MD LAB BLOOD ORDERABLES Final Resu lt [facility] [address] [place] [address], [place] [phone] * ECG-Annotated (03/20/2024) us Provider Onbase ECG ORDERABLES Final Result documented in this encounter Visit Diagnoses Diagnosis Dizziness- Primary Dizziness and giddiness documented in this encounter Administered Medications Inactive Administered Medications - up to 3 most recent administrations Medication Order MAR Action Action Date Dose Rate Site meclizine (ANTIVERT) tablet 25 mg 25 mg, oral, Once, On Sat03/20/24 at 1634, For 1 dose Given 03/20/2024 5:12 PM EST 25 mg documented in this encounter Active and Recently Administered Medications Times are shown in EST. Scheduled Medication Order 03/18/2024 03/19/2024 03/20/2024 meclizine (ANTIVERT) tablet 25 mg (COMPLETED) 25 mg, oral, Once, On Sat03/20/24 at 1634, For 1 dose 1712 (Given - Provid er: Vashti Prater RN) documented in this encounter Orders Medications Ordered That Logan ht Not Have Been Administered Count Last Ordered Date First Ordered Date meclizine (ANTIVERT) tablet 25 mg 1 025 Lab Orders Without Results Count Last Ordered D ate First Ordered Date POCT GLUCOSE, BLOOD 1 03/20/2024 documented in this encounter Care Teams Hat Blocking Operator Relationship Specialty Start Date End Date Bayron Rascon MD [address] [place] [address] PCP - General Internal Medicine 05/23/11 documented as of this encounter
== END 2024-04-07 10:48 | disposition home or self-care (01) ==
PROVIDERS: PCP Internal Medicine; Visit Provider Internal Medicine Nephrology
DX: N18.31 Chronic kidney disease, stage 3a (principal); I10 Essential (primary) hypertension
CPT/HCPCS: 99214

== ENCOUNTER → 2024-04-07 09:48 | Outpatient (BNVA) | payer MEDICARE, OTHER, SELFPAY | PROVIDERS: PCP Internal Medicine; Visit Provider Internal Medicine Nephrology | DX: I12.9 Hypertensive chronic kidney disease with stage 1 through stage 4 chronic kidney disease, or unspecified chronic kidney disease (principal); N18.31 Chronic kidney disease, stage 3a | CPT/HCPCS: 99212 ==

== ENCOUNTER 2024-08-06 13:04 | Outpatient (REF) | payer MEDICARE, OTHER, SELFPAY ==
--- OUTSIDE RECORDS SUMMARY | 2024-08-06 15:13 | XMS_ITS | Clinical Summary ---
Author Organization [facility] Address [address] [place] [address] Phone Care Team Providers Care Refrigeration Service Inspector Name Role Phone Bayron Rascon MD Primary Care Provider [phone] Allergies No known active allergies Medications losartan [...] Comments Breast Cancer Screening 1950 Pneumococcal Vaccine: 50+ Ye ars (1 of 2 - PCV) 1968 Colorectal Cancer Screening: Annual FOBT 1998 Colorectal Cancer Screening: Colonoscopy 1998 Colorectal Cancer Screening: Sigmoidoscopy 1998 Influenza Vaccine (Season Ended) 2024 Hepatitis B Vaccine Aged Out No longe r eligible based on patient's age to complete this topic Insurance Medicare [facility] Medicare [facility] Care Teams Refrigeration Service Inspector Relationship Specialty Start Date End Date Bayron Rascon MD [address] [place] [address] PCP - General 03/07/20
[2024-08-06 17:51] LABS: Anion Gap 12 (12-20); Blood Urea Nitrogen 15 mg/dL (9-16); Carbon Dioxide 27 mmol/L (22-29); Chloride 109 mmol/L (96-108); Estimated Glomerular Filt Rate 47; Potassium 3.9 mmol/L (3.3-5.1); Sodium 144 mmol/L (135-145)
[2024-08-06 18:05] LABS: Creatinine Urine 125.16 mg/dL; Total Protein Urine Random < 7 mg/dL (<12)
== END 2024-08-06 13:05 | disposition home or self-care (01) ==
LOC: HO.HKASLDS 13:04
PROVIDERS: Visit Provider Internal Medicine Nephrology
DX: N18.31 Chronic kidney disease, stage 3a (principal); I10 Essential (primary) hypertension
CPT/HCPCS: 36415; 80051; 82565; 82570; 84156; 84520

== ENCOUNTER 2024-08-11 13:32 | Outpatient (AMB) | payer MEDICARE, OTHER, SELFPAY ==
[2024-08-11 13:35] VITALS: BP 140/90; PULSE 74; O2SAT 100; BMI 24.9
--- NOTE | 2024-08-11 13:35 | HO.NEPHOV ---
Vital Signs 08/11/24 13:35 Height 5 ft 2 in Weight 136 lb BMI 24.9 BP 140/90 H Blood Pressure Location Lt brachial Position Sitting Pulse 74 Pulse Source Pulse Oximeter Pulse Oximetry (%) 100 Oxygen Delivery Method Room Air Intake Visit Reasons: 4mon follow-up w/labs-LVM Animal Handler Required: No Accompanied by: Self / Same As Patient Allergies No Known Allergies Allergy (Verified 08/11/24 13:37) HPI Comments Details: I had the pleasure of seeing Rama in follow-up of her mild chronic kidney disease and hypertension. Her blood pressures have been better since adjustment of her medications . She has been having recurrent vestibulitis. She does not take any excess sodium in the diet or nonsteroidal anti-inflammatories. She maintains good hydration. She denies chest pain, shortness of breath, proximal nocturnal dyspnea, orthopnea, pedal edema, urinary symptoms, orthostasis or hematuria. Her serum creatinine had been stable around 1.3. Her mother had CKD, followed had CKD and 1 of her cousins had ESRD needing renal transplantation. She is compliant with her medications. [facility] Medical History Chronic kidney disease, stage 3a Hypertension Surgical History History of hysterectomy Family History Father Diabetes CKD (chronic kidney disease) Mother Diabetes CKD (chronic kidney disease) Mother Diabetes CKD (chronic kidney disease) Social History Alcohol intake: never Patient Tobacco Use Status: Never used Tobacco Review of Systems Const All systems reviewed & are unremarkable except as noted in HPI and below Physical Exam Vital Signs: Last Vital Signs Pulse 74 08/11/24 13:35 BP 150/90 H 08/11/24 13:35 Pulse Ox 100 08/11/24 13:35 Oxygen Delivery Method Room Air 08/11/24 13:35 BMI result Body Mass Index 24.9 Const General: comfortable and no acute distress Orientation/consciousness: patient oriented x3 HEENT Head: Yes normocephalic Mouth: Normal oral and palatal mucosa present Eyes EOM: EOMs intact bilaterally Neck Neck: Yes supple Resp Auscultation: clear to auscultation bilaterally Cardio Jugular venous distension: no JVD Rate: regular rate GI Palpation (GI): Soft to palpation Auscultation: normal bowel sounds General: Yes no CVA tenderness Back/Spine/Pelvis Back: no CVA tenderness Skin General skin exam: no rashes or lesions noted Neuro General: patient oriented x3 and moves all extremities Extrem General: Yes no pedal edema Results Reviewed Nephrology Results: Sodium 144 mmol/L (135-145) 08/06/24 Potassium 3.9 mmol/L (3.3-5.1) 08/06/24 Chloride 109 mmol/L (96-108) H 08/06/24 Carbon Dioxide 27 mmol/L (22-29) 08/06/24 BUN 15 mg/dL (9-16) 08/06/24 Creatinine 1.14 mg/dL (0.5-1.4) 08/06/24 Urine Creatinine 125.16 mg/dL 08/06/24 Protein/Creatinin Ratio TNP 08/06/24 Assessment & Plan Assessment & Plan (1) Chronic kidney disease, stage 3a: Code(s): N18.31 - Chronic kidney disease, stage 3a Category: Medical (2) Hypertension: Code(s): I10 - Essential (primary) hypertension Category: Medical Qualifiers: Hypertension type: primary hypertension Qualified Code(s): I10 - Essential (primary) hypertension Plan Rama has mild CKD likely from vascular disease. She has no proteinuria. Her serum creatinine is stable . 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 She does not have any RBCs in the urine. She can continue her losartan at 100 mg daily AM and amlodipine to 5 mg daily at night. All questions answered. Follow-up given. Orders: Orders Creatinine 6 Months I10 - Essential (primary) hypertension, N18.31 - Chronic kidney disease, stage 3a Blood Urea Nitrogen 6 Months I10 - Essential (primary) hypertension, N18.31 - Chronic kidney disease, stage 3a Electrolytes 6 Months I10 - Essential (primary) hypertension, N18.31 - Chronic kidney disease, stage 3a Medications: Refilled losartan 100 mg PO DAILY 90 days 90 tabs 4RF Coding Level of Care Code Est Pt Level 4 (90096) Diagnoses Chronic kidney disease, stage 3a N18.31 Primary hypertension I10 Hypertension type: primary hypertension
--- OUTSIDE RECORDS SUMMARY | 2024-08-11 15:28 | XMS_ITS | Clinical Summary ---
Author Organization [facility] Address [address] [facility] [address] [place] [address] Phone Care Team Providers Care It Analyst Name Role Phone Bayron Rascon MD Primary Care Provider [phone] Allergies No known active allergies Medications losartan [...] age to complete this topic Insurance Medicare [facility] Medicare [facility] Care Teams It Analyst Relationship Specialty Start Date End Date Bayron Rascon MD [address] [place] [address] PCP - General 03/07/20
== END 2024-08-11 14:14 | disposition home or self-care (01) ==
LOC: HO.HKAS 13:33
PROVIDERS: PCP Internal Medicine; Visit Provider Internal Medicine Nephrology
DX: N18.31 Chronic kidney disease, stage 3a (principal); I10 Essential (primary) hypertension
CPT/HCPCS: 99214

== ENCOUNTER → 2024-08-11 13:32 | Outpatient (BNVA) | payer MEDICARE, OTHER, SELFPAY | PROVIDERS: PCP Internal Medicine; Visit Provider Internal Medicine Nephrology | DX: I12.9 Hypertensive chronic kidney disease with stage 1 through stage 4 chronic kidney disease, or unspecified chronic kidney disease (principal); N18.31 Chronic kidney disease, stage 3a | CPT/HCPCS: 99212 ==